=== PATIENT | female | born 1975 | race Caucasian/White ===

== ENCOUNTER 2018-03-02 22:06 | Emergency (ER) | payer OTHER ==
[2018-03-02] MEDS ORDERED: Methocarbamol 500 MG Tab PO ONE (22:30)
[2018-03-02] MEDS: Ketorolac 60 MG/2 ML SDV IM ONE ×2 (22:35→22:52)
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
== END 2018-03-02 22:45 | disposition home or self-care (01) ==
LOC: KA.ED 22:06
DX: S16.1XXA Strain of muscle, fascia and tendon at neck level, initial encounter (principal); Z88.0 Allergy status to penicillin; V43.52XA Car driver injured in collision with other type car in traffic accident, initial encounter
CPT/HCPCS: 96372; 99283; A9270-GY; J1885